=== PATIENT | female | born 1965 | race Two or more races ===

== ENCOUNTER 2018-01-19 21:57 | Emergency (ER) | payer SELFPAY ==
[~2018-01-19] VITALS: Ht 162.6 cm; Wt 90.7 kg
[2018-01-19] MEDS ORDERED: Tylenol #3 tab (300mg/30mg) ORAL ONE (22:15)
--- NOTE | 2018-01-19 22:18 | Emergency Room Report ---
History of Present Illness General Chief Complaint: Lower Extremity Injury Source: Patient Present Illness HPI At approximately 8:30 last night patient was coming down some steps in a store Patient is not clear exactly what happened however ended up falling and tripping Patient had pain to both of her feet However the left ankle and lower leg has had increased swelling Increased pain Patient is unable to put any weight on the left side Denies any knee pain and eyes any pelvic pain denies any head injury or lapse of consciousness Allergies: Coded Allergies: PENICILLINS (Verified Allergy, Unknown, 01/19/18) Patient History Past Medical History: see triage record Pertinent Family History: none Last Menstrual Period: none Reviewed Nursing Documentation: PMH: Agreed; PSxH: Agreed Nursing Documentation-PMH Past Medical History: No Stated History Review of Systems All Other Systems: negative except mentioned in HPI Physical Exam Vital Signs Date Time Temp Pulse Resp B/P (MAP) Pulse Ox O2 Delivery O2 Flow Rate FiO2 01/19/18 22:07 99.0 100 18 161/99 98 Room Air 99.0 Sp02 EP Interpretation: reviewed, normal General Appearance: no apparent distress Head: normocephalic, atraumatic Eyes: bilateral eye PERRL, bilateral eye EOMI ENT: normal pharynx, no angioedema Neck: full range of motion, supple Respiratory: lungs clear, normal breath sounds Cardiovascular #1: regular rate, rhythm, no edema Gastrointestinal: non tender, soft Musculoskeletal: swelling - Significant ecchymosis and swelling to the left ankle and dorsal foot, also bruising noted at the mid tibial region, pulses are intact Neurologic: alert, oriented x3, responsive, manager of corporate communications III-XII nml as tested Skin: other - Ecchymosis and swelling as noted above Lymphatic: no adenopathy Procedures Splinting Splinting : Consent: Verbal Location: Right ankle Pre-Made Type: velcro Splint: sugar-tong Pre-Proc Neuro Vasc Exam: normal Post-Proc Neuro Vasc Exam: normal Patient Tolerated: Well Complications: None Medical Decision Making Diagnostic Impression: Primary Impression: Ankle sprain ER Course Given the patient's presentation imaging studies were obtained there is no obvious acute fracture noted however patient has significant ecchymosis and swelling raising the concern of ligamental injury Patient is splinted and requires close outpatient follow-up Other X-Ray Diagnostic Results Other X-Ray Diagnostic Results #1: X-Ray ordered: Right ankle # of Views/Limited Vs Complete: 3 View Indication: Pain EP Interpretation: Yes Interpretation: no dislocation, no fractures, other - Soft tissue swelling Impression: Other - Soft tissue swelling Electronically Signed by: Davon Spence DO Other X-Ray Diagnostic Results #2: X-Ray ordered: right tib-fib # of Views/Limited Vs Complete: 2 View Indication: Pain EP Interpretation: Yes Interpretation: no dislocation, no soft tissue swelling, no fractures Impression: No acute disease Electronically Signed by: Davon Spence DO Last Vital Signs Date Time Temp Pulse Resp B/P (MAP) Pulse Ox O2 Delivery O2 Flow Rate FiO2 01/19/18 22:07 99.0 100 18 161/99 98 Room Air 99.0 Status: improved Disposition: HOME, SELF-CARE Condition: Improved Scripts Ibuprofen* (MOTRIN*) 600 Mg Tablet 600 MG ORAL Q8H PRN for For Pain, #20 TAB 0 Refills Prov: Davon Spence DO 01/19/18 Additional Instructions: Patient is provided with the discharge instructions notified to follow up with primary doctor in the next 2-3 days otherwise return to the er with any worsening symptoms. Please note that this report is being documented using [employer] technology. This can lead to erroneous entry secondary to incorrect interpretation by the dictating instrument. Davon Spence DO Jan 19, 2018 22:18
--- NOTE | 2018-01-19 23:03 | Diagnostic Imaging Report ---
EXAM: XR Left Ankle Complete, 3 or More Views CLINICAL HISTORY: PAIN TECHNIQUE: Frontal, lateral and oblique views of the left ankle. COMPARISON: No relevant prior studies available. FINDINGS: Bones/joints: No acute fracture or dislocation. Soft tissues: There is soft tissue swelling around the ankle joint. IMPRESSION: Soft tissue swelling. No acute fracture or dislocation.
--- NOTE | 2018-01-19 23:05 | Diagnostic Imaging Report ---
EXAM: XR Left Tibia and Fibula, 2 Views CLINICAL HISTORY: PAIN TECHNIQUE: Frontal and lateral views of the left tibia and fibula. COMPARISON: No relevant prior studies available. FINDINGS: Bones/joints: Unremarkable. No acute fracture. No dislocation. Soft tissues: Unremarkable. No radiopaque foreign body. Other findings: IMPRESSION: No acute bony or traumatic abnormality.
[2018-01-19] MEDS ORDERED: IBUPROFEN600 MG ORAL (23:06)
[2018-01-19 23:20] VITALS: BP 0/0
== END 2018-01-19 23:20 | disposition home or self-care (01) ==
LOC: EMR 22:23
DX: S93.402A Sprain of unspecified ligament of left ankle, initial encounter (principal); W01.0XXA Fall on same level from slipping, tripping and stumbling without subsequent striking against object, initial encounter; Y92.512 Supermarket, store or market as the place of occurrence of the external cause; Z88.0 Allergy status to penicillin
CPT/HCPCS: 29515; 99284